=== PATIENT | female | born 1990 | race Caucasian/White ===

== ENCOUNTER 2016-03-12 04:00 | Inpatient (IN) ==
[2016-03-12] MEDS ORDERED: Metoclopramide 10 MG/2 ML VIAL IVP PRN (04:21)
[2016-03-12] MEDS ORDERED: Famotidine 20 MG/2 ML VIAL IVP PRN (04:21)
[2016-03-12] MEDS ORDERED: *HR* Nalbuphine 20 MG/ML AMPUL IVP PRN ×2 (04:26→09:27)
[2016-03-12] MEDS ORDERED: miSOPROStol 25 MCG TABLET VG ONE (04:45)
[2016-03-12 04:56] LABS: Basophils # 0.1 K/mcL (0.0-0.2); Basophils % 0.4 %; Eosinophils # 0.3 K/mcL (0.0-0.6); Eosinophils % 1.6 %; Hematocrit 31.8 % (35.3-44.9); Hemoglobin 11.1 g/dL (11.5-15.4); Immature Granulocytes % 1.6 % (0-4); Immature Platelets 14.5 % (1.1-6.1); Lymphocytes # 4.2 K/mcL (0.6-4.6); Lymphocytes % 21.3 %; Mean Corpuscular HGB Conc 34.9 g/dL (31.6-35.5); Mean Corpuscular Volume 91.6 fL (83.0-100.0); Mean Platelet Volume 11.8 fL (9.4-12.4); Monocytes # 0.9 K/mcL (0.0-1.3); Monocytes % 4.5 %; Platelet Count 168 K/mcL (140-400); Red Blood Count 3.47 M/mcL (3.82-4.97); Red Cell Distribution Width 13.8 % (11.5-14.5); Segmented Neutrophils % 70.6 %
[2016-03-12] MEDS ORDERED: Ringers Solution, Lactated 1,000 ML ONE (05:33)
[2016-03-12] MEDS ORDERED: Ringers Solution, Lactated 1,000 ML IVC SCH (06:15)
--- NOTE | 2016-03-12 08:17 | OB/GYN History & Physical ---
Date of Encounter: 03/12/16 Time of Encounter: 08:13 Assessment and Plan (1) 37 weeks gestation of Current visit: Yes Status: Acute admit for IOL for IUGR (2) IUGR (intrauterine growth restriction) Current visit: Yes Status: Acute Cytotec 25mcg vaginally x1. (3) Smoker Current visit: Yes Status: Acute Education on smoking cessation reviewed with patient. History of Present Illness Chief complaint: IOL for IUGR HPI: Ms. Arrieta is a 25 year old female at 37w0d presents to labor and delivery for IOL for IUGR. Delivery at 37w0d was recommended by Dr. Robertson and . Cytotec 25mcg was placed vaginally at 0459. Blood type O+, Rubella : Immune, Hep B: Negative, GBS: Negative. Past Med Surg Social Fam HX - Past Medical History Source: patient Medical history: other (scoliosis) Psychiatric history: anxiety, previous psychiatric hospitalization - Past Surgical History Surgical History: no surgical history - Social History Smoking Status: Current every day smoker Packs per day: 0.5 Smokeless Tobacco Status: No Alcohol use: none Drug use: marijuana Occupational status: employed Current living situation: Home - Independent Activity Level: Independent ambulation Recent Out of Country Travel Within the Last 8 Weeks: No Exposure or Possible Exposure to Illness During Travel: No - Family History Mother Age: 56 Living Status: Still Living Hx Family Cardiac Disorders: Yes (HIGH CHOLESTEROL) Hx Family Respiratory Disorders: No Hx Family Cancer: Yes (BREAST CANCER) Hx Family GI Disorders: No Hx Family Genitourinary Disorders: No Hx Family Endocrine Disorder: No Hx Family Musculoskeletal Disorders: No Hx Family Neuromuscular Disorders: No Hx Family Neurologic Disorders: No Hx Family HEENT Disorders: No Hx Family Autoimmune Disorders: No Hx Family Reproductive Disorders: No Hx Family Psychosocial Disorders: No Hx Family Medical Disorders: No Obstetrical History - Pregnancies : 1 Para: 0 Term: 0 : 0 Ab's: 0 Livin Medications and Allergies One Tablet 1 tab PO DAILY 03/12/16 [History] Promethazine 12.5 mg PO Q6H PRN 03/12/16 [History] Allergies No Known Allergies Allergy (Verified 03/12/16 04:18) Review of System OB - Constitutional Constitutional ROS IM: no chills, no fever(s), no weakness - Cardiovascular Cardiovascular: no chest pain, no dyspnea, no leg edema, no palpitations, no syncope - Respiratory Respiratory: no cough - Gastrointestinal Gastrointestinal: no constipation, no cramping, no heartburn, no nausea, no vomiting - Genitourinary Genitourinary: no abnormal vaginal bleeding, no dysuria, no flank pain, no urinary frequency, no vaginal discharge, no vaginal odor, no vaginal pruritis - Neurological Nerological: no dizziness, no headache(s), no syncope Exam - Vital Signs Vital signs: Initial Vital Signs Temp Pulse Resp BP 98.9 F 77 16 113/63 03/12/16 04:28 03/12/16 04:28 03/12/16 04:28 03/12/16 04:28 - Constitutional Constitutional: well developed, well nourished, no acute distress, average body habitus - HEENT HEENT: Normocephaly, Mucus Membranes Moist - Neck Neck exam: full ROM, supple - Lungs Respiratory exam: CTAB - Cardiovascular Cardiovascular exam: RRR, +S1, +S2 - Abdomen Abdomen: Present: bowel sounds normal, gravid, non tender - Extremities Extremities exam: normal inspection Deep Tendon Reflex Grade: 2+ Normal - Cervix Dilation: 4 Effacement: 90 Station: 0 - Uterus Uterus exam: Present: normal size, normal contour - Anus/Rectum Anus/Rectum: Present: normal perianal skin (FHR 125 bpm moderate variability + 15x15 accels no decels noted. Contractions 2-4 min apart. Cat. 1 tracing. ) Results Result Diagrams: 03/12/16 04:43 Abnormal lab results WBC 19.9 K/mcL (4.3-11.1) H 03/12/16 04:43 RBC 3.47 M/mcL (3.82-4.97) L 03/12/16 04:43 Hgb 11.1 g/dL (11.5-15.4) L 03/12/16 04:43 Hct 31.8 % (35.3-44.9) L 03/12/16 04:43 Neutrophils # 14.0 K/mcL (1.6-8.9) H 03/12/16 04:43 Immature Plt Fraction 14.5 % (1.1-6.1) H 03/12/16 04:43 All other labs normal. - VTE Reasons for not Prescribing Prophylaxis: Treatment not Indicated - Low risk for VTE
--- NOTE | 2016-03-12 09:44 | Anesthesia Evaluation PreOp ---
Date of Encounter: 03/12/16 Time of Encounter: 09:41 - Past History Planned Operation: moisés Cardiac History: Denies any Significant Hx Pulmonary History: Smoker (1/2 pack per day) [employer] History: Denies Any Significant HX Other Medical History: Denies Any Significant HX, Other (scoliosis) Anesthesia History: No Prior Anesthetic Complications, Past Anesthesia : Yes (37 weeks with IUGR, ) Alcohol Use: none Drug use: marijuana Medications and Allergies One Tablet 1 tab PO DAILY 03/12/16 [History] Promethazine 12.5 mg PO Q6H PRN 03/12/16 [History] Allergies No Known Allergies Allergy (Verified 03/12/16 04:18) - Meds/Allergy Pre-op Review Medications Reviewed: Yes Allergies Reviewed: Yes Beta Blockers on Current Med List: No Anesthesia Results - Labs 03/12/16 04:43 Anesthesia Exam O2 Sat Height 1.55 m Height 1.55 m Weight 60 kg Weight 60 kg Vital Signs Temp Pulse Resp BP 98.9 F 77 16 113/63 03/12/16 04:28 03/12/16 04:28 03/12/16 04:28 03/12/16 04:28 Height: 61 Weight: 60 - HEENT Pupil (Motor): Pupils equal Mallampati: II Teeth: Poor dentition Oral Opening: Greater than 3 - [employer] LOC: Oriented [employer] Motor: Normal RUE, Normal LUE, Normal RLE, Normal LLE, Normal Face [employer] Sensory: Normal: RUE, LUE, RLE, LLE, Face - Cardiac Rhythm: Regular Murmur: None JVD: No Carotid Bruit: No - Pulmonary Breath Sounds: bilateral Clear Respiratory Effort: Symmetrical Anesthesia Assess/Plan ASA Score: 2 Modified [place] Scale for Level of Consciousness: Cooperative, oriented, and tranquil Anesthetic Plan: Regional Autologous Blood: No Monitoring Plan: Standard Monitors
[2016-03-12] MEDS ORDERED: *HR* FentaNYL (PF) 100 MCG/2 ML VIAL ONE (10:09)
[2016-03-12] MEDS ORDERED: Epidural Premix (fent/bupiv) 110 ML EP ONE (10:09)
[2016-03-12] MEDS ORDERED: Bupivacaine-MPF 0.25% 10 ML VIAL ONE (10:09)
[2016-03-12] MEDS ORDERED: Ringers Solution, Lactated 500 ML IVC ONE (10:37)
[2016-03-12] MEDS ORDERED: Bupivacaine-MPF 0.25% 10 ML VIAL EP ONE (10:37)
[2016-03-12] MEDS ORDERED: EPHEDrine 50 MG/ML VIAL IVP PRN (10:37)
[2016-03-12] MEDS ORDERED: Ondansetron 4 MG/2 ML VIAL IVP PRN (10:37)
[2016-03-12] MEDS ORDERED: *HR* FentaNYL (PF) 100 MCG/2 ML VIAL EP ONE (10:37)
--- NOTE | 2016-03-12 10:41 | Anesthesia Procedures ---
Date of Encounter: 03/12/16 Time of Encounter: 10:10 Procedures: Anesthesia - Epidural/Spinal Patient ID/Chart reviewed: Yes Patient examined: Yes OB Eval: Gestational age: 37 OB Eval: : 1 OB Eval: Contractions: Non-stressed pattern Supplemental Oxygen: None/Room Air Site Prep: Aseptic Technique, 0.5% Chlorhexidine/Alcohol Patient position: upright Local Anesthetic: Lidocaine 1% Amount of Local Anesthetic used: 3 Touhy Needle Gauge: 18 Touhy Needle Depth (cm): 5 Catheter Depth at Skin (cm): 10 Test Dose (1.5% Lido + Epi): Volume given (mls): 3 Test Dose Result: Negative Loading Dose: 0.25% Marcaine (mls): 4 Loading Dose: Fentanyl (mcg): 100 Loading Dose: Other: 2 Loading Dose Administered: Thru Touhy Needle Infusion Med: 0.125% Bupivacaine w/ 2 mcg/ml Fentanyl Infusion Rate (mls/hr): [address]: Tegaderm Interspace Used: L3-L4 Loss of Resistance (SEBLE): Yes Blood: No CSF: No Paresthesia: No Procedure: STRICT ASEPSIS, GOOD SEBLE, FHR UNCHANGED Vitals + FHT's: SEE NURSES NOTES
[2016-03-12] MEDS ORDERED: Epidural Premix (fent/bupiv) 110 ML EP SCH (10:45)
--- NOTE | 2016-03-12 11:13 | OB Labor Progress Note ---
Date of Encounter: 03/12/16 Time of Encounter: 11:10 Labor Progress Note - Subjective Subjective: Patient resting comfortably with epidural in place. Discussed POC with patient. patient denies any questions or concerns. - Cervix Cervix: 4.5/100/0 - Heart Tones Heart Tones: 120 bpm moderate variability +15x15 accels no decels noted. Cat. 1 tracing. - Dulce Dulce: 1.5-2.5 min apart. - Interventions Interventions: SVE, IUPC placed without difficulty. Patient tolerated well. - Plan Plan: continue labor management.
[2016-03-12] MEDS ORDERED: Oxytocin 20 units/ LR 1000 mL 20 UNIT/1,000 ML BAG IVC SCH (11:30)
--- NOTE | 2016-03-12 14:24 | OB/GYN Procedure Note ---
Delivery - Delivery Date: 03/12/16 Provider: Fabi Fajardo Intrapartum events: none Delivery induction: AROM, misoprostol Delivery augmentation: pitocin Delivery monitor: external FHT, internal uterine Anesthesia: epidural Estimated Blood Loss: 300 - (s) Infant A Delivery Date: 03/12/16 Infant Delivery Time: 13:51 Presentation: vertex Position: OA Gender: Female Viability: Viable Pounds: 4 Ounces: 9 Weight Gram: 2.075 kg at 1 minute: 9 at 5 mins: 9 Shoulder Dystocia: not encountered Specimens collected: cord blood Placenta: spontaneous Cord: 3 umbilical vessels - Repair Episiotomy: none Laceration Description: Labial (bilateral repaired with 4-0 vicryl) - Complications Delivery complications: none Delivery comments: Patient progressed to complete and +2 station. Patient began pushing with contractions. Spontaneous delivery of Female in OA position. Infant was placed on maternal abdomen. Cord was clamped and cut after pulsation ceased. then placed skin to skin with mother. Bilateral labial lacerations repaired with 4-0 vicryl. Patient tolerated well. Spontaneous delivery of intact placenta. Placenta sent to pathology for IUGR. Both mother and are stable in LDR for recovery. - Disposition Mom disposition: stable in LDR [place] disposition: stable in LDR
[2016-03-12] MEDS ORDERED: Lanolin 7 G OINT...G. TP PRN (17:04)
[2016-03-12] MEDS ORDERED: Acetaminophen 325 MG TABLET PO PRN (17:04)
[2016-03-12] MEDS ORDERED: Oxytocin 20 units/ LR 1000 mL 20 UNIT/1,000 ML BAG IV SCH (17:04)
[2016-03-12] MEDS ORDERED: *HR* HYDROcodone/Acet 5/325 mg TABLET PO PRN (17:04)
[2016-03-12] MEDS ORDERED: Benzocaine/Menthol 56 GM AEROSOL SPRAY TP PRN (17:04)
[2016-03-12] MEDS ORDERED: Oxytocin 20 units/ LR 1000 mL 20 UNIT/1,000 ML BAG IVC ONE (17:04)
[2016-03-12] MEDS: Ibuprofen 600 MG TABLET PO PRN (22:09)
[2016-03-13] MEDS: Ibuprofen 600 MG TABLET PO PRN ×2 (09:14→19:52)
[2016-03-13] MEDS: Prenatal Vit/FA 1 EACH TABLET PO SCH (09:15)
--- NOTE | 2016-03-13 09:32 | OB/GYN Progress Note ---
Date of Encounter: 03/13/16 Time of Encounter: 09:30 - Assessment and Plan (1) 37 weeks gestation of Current Visit: Yes Status: Acute admit for IOL for IUGR (2) IUGR (intrauterine growth restriction) Current Visit: Yes Status: Acute Cytotec 25mcg vaginally x1. (3) Smoker Current Visit: Yes Status: Acute Education on smoking cessation reviewed with patient. (4) Vaginal delivery Current Visit: Yes Status: Acute Continue routine care discharge home tomorrow Subjective - Subjective Principal diagnosis: day 1 Interval history: Patient is ppd 1 . patient is bottle feeding female . is 3 day hold. Patient denies any pain at this time Patient reports: appetite normal, voiding normally, pain well controlled, ambulating normally : doing well, bottle feeding Objective - Latest Vital Signs Latest vital signs: Vital Signs Temp Pulse Resp BP Pulse Ox 03/13/16 07:40 97.6 F 63 16 109/68 99 03/13/16 03:10 98.2 F 52 16 97/60 98 03/12/16 21:10 98.2 F 69 14 107/67 97 03/12/16 18:28 98.1 F 62 18 124/69 98 03/12/16 17:15 97.7 F 68 18 107/61 98 03/12/16 17:06 18 03/12/16 16:15 97.8 F 63 16 119/69 98 Intake and Output 03/12/16 03/13/16 03/13/16 23:59 07:59 15:59 Intake Total 700 / 700 350 / 350 Output Total 1100 / 1100 950 / 950 Balance -400 / -400 -600 / -600 Intake: IV Fluids 700 / 700 Pitocin 20 unit In 1,000 700 / 700 ml @ Per Protocol IVC . Q0M ILDEFONSO Rx#:[id number] Oral 350 / 350 Output: Urine 1100 / 1100 950 / 950 Other: Weight 58.9 kg - Exam Lungs: bilateral: normal Chest: Normal S1, Normal S2 Extremities: Present: normal Abdomen: Present: normal appearance, soft Uterus: Present: normal, firm Uterus Position: At Umbilicus, Midline
[2016-03-14 07:45] VITALS: BP 114/78
[2016-03-14] MEDS: Ibuprofen 600 MG TABLET PO PRN (08:41)
[2016-03-14] MEDS: Prenatal Vit/FA 1 EACH TABLET PO SCH (08:41)
--- NOTE | 2016-03-14 09:14 | Discharge Summary ---
Date of Encounter: 03/14/16 Time of Encounter: 09:10 - Discharge Diagnosis (1) 37 weeks gestation of Priority: Secondary Status: Acute (2) IUGR (intrauterine growth restriction) Priority: Secondary Status: Acute (3) Smoker Priority: Secondary Status: Acute (4) Vaginal delivery Priority: Primary Status: Acute Comments: Continue routine care discharge home today follow up in 4-6 weeks with CNM (5) Breast feeding status of mother Priority: Secondary Status: Acute Comments: support - Discharge Medications Prescriptions: Ibuprofen [Motrin] 600 mg PO Q6HR PRN #60 tablet PRN Reason: Cramping Breast Pump [BREAST PUMP] 1 each .ROUTE AD #1 each Home Medications: One Tablet 1 tab PO DAILY 03/12/16 [History] Breast Pump [BREAST PUMP] 1 each .ROUTE AD #1 each 03/14/16 [Rx] Ibuprofen [Motrin] 600 mg PO Q6HR PRN #60 tablet 03/14/16 [Rx] Lanolin [Lansinoh] 1 appl TP TID PRN #0 oint...g. 03/14/16 [Rx] Vit/FA 1 each PO DAILY tablet 03/14/16 [Rx] Allergies/Adverse Reactions: Allergies No Known Allergies Allergy (Verified 03/12/16 04:18) Data Procedures and tests throughout hospitalization: Laboratory Tests 03/12/16 04:43 WBC 19.9 H RBC 3.47 L Hgb 11.1 L Hct 31.8 L MCV 91.6 MCH 32.0 MCHC 34.9 RDW 13.8 Plt Count 168 MPV 11.8 Immature Gran % 1.6 Seg Neutrophils % 70.6 Lymphocytes % 21.3 Monocytes % 4.5 Eosinophils % 1.6 Basophils % 0.4 Neutrophils # 14.0 H Lymphocytes # 4.2 Monocytes # 0.9 Eosinophils # 0.3 Basophils # 0.1 Immature Plt Fraction 14.5 H Date of admission: 03/12/16 04:10 Primary care physician: Rosenda Leslie CNP Consults: 03/12/16 17:04 Consult to Storage Receipt Poster [CONS] Routine Comment: Vaginal delivery, consult needed Consult to Bait Tier [CONS] Routine Reason for SW Consult: 3 day hold for Marijuana use in Discharging clinician: Fabi Fajardo Anticipated date of discharge: 03/14/16 - Patient Status Disposition: Home, Self-Care Condition: Good Functional capacity at discharge: independent ambulation - Discharge Instructions Follow Up With: Rosenda Leslie CNP [Primary Care Provider] - Robyn Suarez CNM [Non-Partnered Physician] - (April 10, 2016 @ 1:45 pm ) - Diet and Activity Activity: increase activity as tolerated Diet: regular diet Hospital Course Reason for admission: induction of labor (for IUGR) Delivery: Episiotomy: none Laceration: other (bilateral labial lacerations) Other procedures: none complications: none Discharge diagnosis: IUP at term delivered baby: female (breast feeding) Time Attestation: Total time spent providing and/or coordinating discharge services: Time Spent: Less than 30 minutes Exam - Constitutional Vitals: Temp Pulse Resp BP Pulse Ox 98.1 F 70 16 114/78 100 03/14/16 07:42 03/14/16 07:42 03/14/16 07:42 03/14/16 07:42 03/14/16 07:42 General appearance IM: A&O X 3, pleasant - Respiratory Respiratory exam: Present: CTAB - Cardiovascular Cardiovascular exam IM: Present: RRR, +S1, +S2 - GI/Abdominal GI/Abdominal exam IM: normal bowel sounds - Uterine Tone: Firm Uterus Position: 2 Fingers Below Umbilicus, Midline - Extremities Exam Extremities exam IM: Present: normal capillary refill, normal inspection - Neurological Exam Neurological exam: oriented X3, reflexes normal
== END 2016-03-14 11:40 | disposition home or self-care (01) | DRG 560 ==
LOC: 1NENULAB 04:10 → 1NENUOBS 16:49
PROVIDERS: ADMIT Advanced Practice Midwife; ATTEND Advanced Practice Midwife